=== PATIENT | female | born 1955 | race Caucasian/White ===

== ENCOUNTER 2016-12-09 11:09 | Outpatient (CLI) | payer MEDICARE ==
[~2016-12-09 11:09] MED LIST: ACTOS30 MG ORAL; ALBUTEROL SULF8.5 GM INH; BREO ELLIPTA 11 EACH IH; CARISOPRODOL350 MG ORAL; CARISOPRODOL350 MG PO; CLONIDINE 0.2M0.2 MG PO; CREON DR 24,001 EACH PO; CYMBALTA60 MG PO; DAILY MULTIVIT1 EAC3 PO; DEXILANT60 MG ORAL; DEXILANT60 MG PO; DIAZEPAM10 MG ORAL; DIAZEPAM5 MG PO; DIPHENOXYLATE-1 EACH PO; FLUTICASONE PRO16 G1 NASAL; GLIMEPIRIDE4 MG PO; HYDROCHLOROTHIA25 MG ORAL; HYDROCHLOROTHIA25 MG PO; HYDROCODON-ACE1 EA13 ORAL; INDERAL20 MG PO; LISINOPRIL40 MG PO; LORAZEPAM1 MG PO; MICROZIDE12.5 M1 PO; MONTELUKAST SOD10 MG PO; MORPHINE SULFAT30 M2 PO; MORPHINE SULFAT30 M9 PO; NASONEX17 GM NASAL; NORCO 10-325 T1 EACH PO; OMEPRAZOLE20 MG PO; PIOGLITAZONE30 MG PO; PROPRANOLOL HCL20 MG ORAL; SIMVASTATIN10 MG PO; SINGULAIR10 MG ORAL; SOMA350 MG PO; TEMAZEPAM15 MG ORAL; TIZANIDINE HCL4 M1 PO; TIZANIDINE HCL4 MG ORAL; TRICOR145 MG ORAL; TYLENOL650 MG/20. GT; VITAMIN D2400 UNI1 PO; VITAMIN D50000 UNIT PO; ZOFRAN ODT4 MG PO; ZOFRAN4 M3 ORAL; [UNRECOGNIZED DRUG - OTHER] PO
--- NOTE | 2016-12-10 14:13 | GI Progress Note ---
Assessment/Plan Problems: (1) Scar of abdomen ICD Codes: L90.5 - Scar conditions and fibrosis of skin SNOMED: 162861154 (2) Chronic pancreatitis ICD Codes: K86.1 - Chronic pancreatitis SNOMED: 929804795 (3) Abdominal bloating ICD Codes: R14.0 - Abdominal distension (gaseous) SNOMED: 357965727 (4) Anemia ICD Codes: D64.9 - Anemia, unspecified SNOMED: 434983984 (5) Chronic pain disorder ICD Codes: G89.4 - Chronic pain disorder SNOMED: 466244854 (6) Diarrhea ICD Codes: R19.7 - Diarrhea, unspecified SNOMED: 32954771 (7) Diabetes ICD Codes: E11.9 - Diabetes SNOMED: 75940986 (8) Constipation ICD Codes: K59.00 - Constipation, unspecified SNOMED: 66567421 Status: stable Status Narrative Seen with Dr. Lechuga. Assessment/Plan defer kenalog injection at this time cont OTC align cont Creon 24K 2 tabs TID with meals RTC x 3 months Subjective Subjective c3-C4 spine pain Abdominal Scar - no flairs chronic pancreatitis, creon 24k takes [facility] probiotics, helps. Objective T 97.7 BP 132/75 P 70 99 RA General Appearance: no apparent distress, alert Cardiovascular: normal rate Respiratory/Chest: normal breath sounds, no respiratory distress Abdominal Exam: normal bowel sounds, non tender, soft Extremities: normal range of motion Lindsey Soriano N.P. Dec 10, 2016 14:13
== END 2016-12-09 11:40 | disposition home or self-care (01) ==
LOC: PAN 11:09
DX: K86.1 Other chronic pancreatitis (principal); R14.0 Abdominal distension (gaseous); L90.5 Scar conditions and fibrosis of skin; D64.9 Anemia, unspecified; G89.4 Chronic pain syndrome; R19.7 Diarrhea, unspecified; E11.9 Type 2 diabetes mellitus without complications; K59.00 Constipation, unspecified
CPT/HCPCS: 99211

== ENCOUNTER 2017-03-10 10:55 | Outpatient (CLI) | payer MEDICARE ==
[2017-03-10] MEDS ORDERED: MUCINEX600 MG PO (11:11)
[2017-03-10] MEDS ORDERED: ZOLPIDEM TARTRA10 MG ORAL (11:11)
[2017-03-10] MEDS ORDERED: OYSCO-500500 M1 PO (11:11)
[2017-03-10] MEDS ORDERED: PROBIOTIC1 EAC2 PO (11:11)
[2017-03-10 11:13] VITALS: BP 146/74
--- NOTE | 2017-03-10 11:30 | GI Progress Note ---
Assessment/Plan Problems: (1) Scar of abdomen ICD Codes: L90.5 - Scar conditions and fibrosis of skin SNOMED: 347174387 (2) Abdominal bloating ICD Codes: R14.0 - Abdominal distension (gaseous) SNOMED: 253828647 (3) Anemia ICD Codes: D64.9 - Anemia, unspecified SNOMED: 700627947 (4) Depression ICD Codes: F32.9 - Depression SNOMED: 75801709 (5) Chronic pancreatitis ICD Codes: K86.1 - Other chronic pancreatitis SNOMED: 886453562 Status: stable Status Narrative Seen with Dr. Lechuga. Assessment/Plan ordered MRCP cont OTC align cont Creon 24K 2 tabs TID with meals RTC after imaging study Subjective Subjective abdominal pain >> LUQ/RLQ GERD Nausea Objective Last 24 Hour Vital Signs Date Time Temp Pulse Resp B/P (MAP) Pulse Ox O2 Delivery O2 Flow Rate FiO2 03/10/17 11:13 97.5 68 18 146/74 General Appearance: no apparent distress, alert, overweight Cardiovascular: normal rate Respiratory/Chest: normal breath sounds, no respiratory distress Abdominal Exam: normal bowel sounds, non tender, soft Extremities: normal range of motion Lindsey Soriano N.P. Mar 10, 2017 11:30
== END 2017-03-10 11:30 | disposition home or self-care (01) ==
LOC: PAN 10:55
DX: L90.5 Scar conditions and fibrosis of skin (principal); R14.0 Abdominal distension (gaseous); D64.9 Anemia, unspecified; F32.9 Major depressive disorder, single episode, unspecified; K86.1 Other chronic pancreatitis; K21.9 Gastro-esophageal reflux disease without esophagitis
CPT/HCPCS: 99211

== ENCOUNTER 2017-03-18 09:56 | Outpatient (CLI) | payer MEDICARE, MEDICAID ==
[~2017-03-18 09:56] MED LIST changes: +MUCINEX600 MG PO; +OYSCO-500500 M1 PO; +PROBIOTIC1 EAC2 PO; +ZOLPIDEM TARTRA10 MG ORAL
--- NOTE | 2017-03-18 15:18 | Diagnostic Imaging Report ---
Indication: PAIN 61-year-old female patient with history of chronic pancreatitis, history of pancreas divisum Technique: Axial single shot fast spin echo breath hold, coronal single shot fast spin-echo breath hold, axial T2 FRFSE fat-saturated, 2-D thick slab MRCP, axial 2-D FIESTA fat-saturated, axial 3-D dual echo breath-hold, precontrast axial and postcontrast axial and coronal water weighted axial LAVA FLEX images of the abdomen Comparison: Reference made to abdomen pelvis CT scan 10/18/2015 Findings: There is a slight degree of image degradation due to motion artifact The gallbladder is unremarkable. No stones are demonstrated. There is mild ectasia of the intrahepatic bile ducts, with the common hepatic duct measuring up to 7 mm in diameter. No downstream obstructive lesion demonstrated. There is minimal prominence to the central intrahepatic ducts, particularly on the left. Pancreatic duct is not well demonstrated. The liver is unremarkable. The pancreas is not well visualized, noted to be atrophic on the previous CT. The spleen, adrenals, kidneys are all unremarkable. Visualized portions of the GI tract are unremarkable.. Impression: Mild ectasia of the extrahepatic bile ducts. This is also reported on earlier studies. No definite downstream obstruction lesion demonstrated. Correlation with liver function tests is recommended. No definite acute or significant abnormality demonstrated otherwise Mildly atrophic pancreas. Better characterize on previous studies. Note that the spatial resolution of this exam is insufficient to better characterize stated clinical history of pancreas divisum.
== END 2017-03-18 11:56 | disposition home or self-care (01) ==
LOC: MRI 09:56
DX: K86.1 Other chronic pancreatitis (principal)
CPT/HCPCS: 74183; A9585

== ENCOUNTER 2017-06-16 11:00 | Outpatient (CLI) | payer MEDICARE ==
[~2017-06-16] VITALS: Ht 30.5 cm; Wt 0.5 kg
[~2017-06-16 11:00] MED LIST changes: +Kenalog-40 1ml Vial IARTIC ONE; +Lidocaine 1% Plain 30 ml INJ ONE
--- NOTE | 2017-06-16 12:02 | GI Progress Note ---
Assessment/Plan Problems: (1) Scar of abdomen ICD Codes: L90.5 - Scar conditions and fibrosis of skin SNOMED: 875114775 (2) Abdominal bloating ICD Codes: R14.0 - Abdominal distension (gaseous) SNOMED: 339461923 (3) Depression ICD Codes: F32.9 - Depression SNOMED: 80410684 (4) Anemia ICD Codes: D64.9 - Anemia, unspecified SNOMED: 313297509 (5) Diabetes ICD Codes: E11.9 - Diabetes SNOMED: 66700286 (6) Constipation ICD Codes: K59.00 - Constipation, unspecified SNOMED: 89581275 Status: stable Status Narrative Seen with Dr. Lechuga. Assessment/Plan 1% lidocaine 9ml + Kenalog 40 cc injection to scar on abdomen refill Creon 24K 2 tabs TID with meals cont OTC align RTC x3 months Subjective Gastrointestinal/Abdominal: Reports: abdominal pain, constipated Objective T 97.8 BP 149/90 P 80 96 RA WT 136 General Appearance: WD/WN, no apparent distress, alert Cardiovascular: normal rate Respiratory/Chest: normal breath sounds, no respiratory distress Abdominal Exam: normal bowel sounds, non tender, soft Extremities: normal range of motion, non-tender Lindsey Soriano N.P. Jun 16, 2017 12:02
[2017-06-16 13:31] VITALS: BP 149/90
== END 2017-06-16 11:35 | disposition home or self-care (01) ==
LOC: PAN 11:00
DX: R14.0 Abdominal distension (gaseous) (principal); L90.5 Scar conditions and fibrosis of skin; F32.9 Major depressive disorder, single episode, unspecified; D64.9 Anemia, unspecified; E11.9 Type 2 diabetes mellitus without complications; K59.00 Constipation, unspecified
CPT/HCPCS: G0463; J2001; J3301; 99212

== ENCOUNTER 2017-07-28 10:27 | Outpatient (CLI) | payer MEDICARE ==
[~2017-07-28 10:27] MED LIST changes: -Kenalog-40 1ml Vial IARTIC ONE; -Lidocaine 1% Plain 30 ml INJ ONE
[2017-07-28] MEDS ORDERED: PROPRANOLOL HCL20 MG ORAL (10:56)
[2017-07-28 11:02] VITALS: BP 146/81
--- NOTE | 2017-07-29 08:57 | GI Progress Note ---
Assessment/Plan Problems: (1) Bleeding hemorrhoid ICD Codes: K64.9 - Unspecified hemorrhoids SNOMED: 36048330 (2) Chronic pancreatitis ICD Codes: K86.1 - Other chronic pancreatitis SNOMED: 720427032 (3) Abdominal bloating ICD Codes: R14.0 - Abdominal distension (gaseous) SNOMED: 479632958 (4) Anemia ICD Codes: D64.9 - Anemia, unspecified SNOMED: 838310342 (5) Constipation ICD Codes: K59.00 - Constipation, unspecified SNOMED: 86858987 Status: stable Status Narrative Discussed with Dr. Lechuga. Assessment/Plan Rx Movantik trial cont creon diet education given RTC x 3 months Subjective Subjective constipation rectal bleed >> bright red blood, had colonoscopy 2014 PCP Rx propranolol 20mg BID for tachycardia asthma aggravated last night, used albuterol Objective Last 24 Hour Vital Signs Date Time Temp Pulse Resp B/P (MAP) Pulse Ox O2 Delivery O2 Flow Rate FiO2 07/28/17 11:02 98.2 73 16 146/81 94 General Appearance: WD/WN, no apparent distress, alert Cardiovascular: normal rate Respiratory/Chest: normal breath sounds, no respiratory distress Abdominal Exam: normal bowel sounds, non tender, soft Extremities: normal range of motion, non-tender Lindsey Soriano N.P. Jul 29, 2017 08:57
== END 2017-07-28 11:09 | disposition home or self-care (01) ==
LOC: PAN 10:27
DX: K64.9 Unspecified hemorrhoids (principal); K86.1 Other chronic pancreatitis; R14.0 Abdominal distension (gaseous); D64.9 Anemia, unspecified; K59.00 Constipation, unspecified; J45.909 Unspecified asthma, uncomplicated
CPT/HCPCS: 99212

== ENCOUNTER 2017-09-08 10:13 | Outpatient (CLI) | payer MEDICARE ==
[2017-09-08] MEDS ORDERED: TIZANIDINE HCL4 MG ORAL (13:00)
[2017-09-08 13:01] VITALS: BP 148/75
--- NOTE | 2017-09-09 13:25 | GI Progress Note ---
Assessment/Plan Problems: (1) Therapeutic opioid-induced constipation (OIC) ICD Codes: K59.03 - Drug induced constipation; T40.2X5A - Adverse effect of other opioids, initial encounter SNOMED: 938091972293779 (2) Constipation ICD Codes: K59.00 - Constipation, unspecified SNOMED: 93699439 Status: stable Status Narrative Seen with Dr. Lechuga. Assessment/Plan additional Movantik samples given to patient cont all current medications RTC x 1 month Subjective Subjective constipation, not complete BM's Movantik trial, good but the copay was too much. tried another med, but caused N/V and RUSSELL, most likely was amitiza Objective T 98.1 BP 148/75 P 74 97 RA General Appearance: WD/WN, no apparent distress, alert Cardiovascular: normal rate Respiratory/Chest: normal breath sounds, no respiratory distress Abdominal Exam: normal bowel sounds, non tender, soft Extremities: normal range of motion, non-tender Lindsey Soriano N.P. Sep 09, 2017 13:25
== END 2017-09-08 10:45 | disposition home or self-care (01) ==
LOC: PAN 10:13
DX: K59.03 Drug induced constipation (principal)
CPT/HCPCS: 99212